=== PATIENT | male | born 1955 | race Caucasian/White ===

== ENCOUNTER 2017-12-07 01:52 | Inpatient (IN) | payer MEDICARE ==
[2017-12-07] VITALS (27 sets, daily range): BP systolic 69–109; BP diastolic 48–72
[~2017-12-07] VITALS: Ht 172.7 cm; Wt 74.1 kg
[2017-12-07 02:37] LABS: Eosinophils # (auto) 0 uL; Lymphocytes # (auto) 0.3 uL; Monocytes # (auto) 0.2 uL
[2017-12-07 02:39] LABS: Basophils # (auto) 0 uL; Basophils % (auto) 0.2 % (0.0-2.0); Lymphocytes % (auto) 1.8 % (10.0-50.0); Mean Corpuscular Hemoglobin 22.8 pg (28.0-32.0); Mean Corpuscular Hgb Conc. 30.9 g/dL (32.0-36.0); Mean Corpuscular Volume 73.8 fL (80.0-100.0); Monocytes % (auto) 1.3 % (0.0-12.0); Neutrophils # (auto) 16.5 uL; Neutrophils % (auto) 96.7 % (37.0-80.0); Platelet Count (auto) 385 10^3/uL (140-450); Red Blood Cells 2.98 10^6/uL (4.5-5.90); Red Cell Distribution Width 18.8 % (11.8-14.3)
[2017-12-07 02:43] LABS: Hemoglobin 6.8 g/dL (13.5-17.5)
[2017-12-07 02:51] LABS: INR 1.46 (0.9-1.15); Partial Thromboplastin Time 32.9 sec (23.78-33.04); Prothrombin Time 15.3 sec (9.27-12.13)
[2017-12-07 02:54] LABS: Alanine Aminotransferase 8 U/L (16-61); Albumin 1.3 g/dL (3.4-5.0); Amylase 5 U/L (25-115); Anion Gap 11 (5-15); Aspartate Aminotransferase 9 U/L (15-37); BUN/Creatinine Ratio 37.3; Blood Urea Nitrogen 38 mg/dL (7-18); Calcium 7.7 mg/dL (8.5-10.1); Carbon Dioxide 23 mmol/L (21-32); Chloride 101 mmol/L (98-107); GFR African American 95 mL/min; GFR Non-African American 78 mL/min; Glucose 165 mg/dL (74-106); Lipase 50 U/L (73-393); Potassium 4.6 mmol/L (3.5-5.1); Sodium 135 mmol/L (136-145)
[2017-12-07 02:59] LABS: Alkaline Phosphatase 105 U/L (45-117); Bilirubin, Total 0.5 mg/dL (0.2-1.0); Total Protein 5.8 g/dL (6.4-8.2)
[2017-12-07] MEDS ORDERED: MORPHINE SULFATE 8mg/ml INJ SDV IV PRN ×2 (05:15)
[2017-12-07] MEDS ORDERED: NITROGLYCERIN 0.4 MG SL TAB SL PRN (05:15)
[2017-12-07] MEDS ORDERED: SODIUM CHLORIDE 0.9% 500 ML IV ONE (05:15)
[2017-12-07] MEDS ORDERED: CALCIUM GLUC 4.65meq/50ml D5AE 50 ML IV ONE (05:15)
[2017-12-07] MEDS ORDERED: DEXTROSE (50%) 50ML SYRG IV PRN (05:15)
[2017-12-07] MEDS: ACCU-CHEK COMFORT CURVE STRIP VI SCH ×3 (06:24→18:00)
[2017-12-07] MEDS: metroNIDAZOLE 500MG/100ML 100 ML IV SCH ×3 (06:25→21:33)
[2017-12-07] MEDS: InsuLIN REG 1unit/0.01ml Soln (100units/ml) SC SCH ×3 (06:29→18:00)
[2017-12-07] MEDS: PANTOPRAZOLE 40 MG/10 ML VIAL IV SCH ×3 (07:04→21:32)
[2017-12-07] MEDS: SODIUM CHLORIDE 0.9% 1,000 ML IV SCH ×2 (07:32→15:17)
[2017-12-07] MEDS: PIPERACILLIN-TAZOB 3.375GM 100 ML IV SCH ×2 (07:43→12:35)
[2017-12-07] MEDS: ONDANSETRON HCL 4 MG/2 ML VIAL IV PRN (07:44)
[2017-12-07 08:32] LABS: Lactic Acid w/Reflex 2.1 mmol/L (0.4-2.0)
[2017-12-07 14:51] LABS: Hemoglobin 10.3 g/dL (13.5-17.5); Mean Corpuscular Hemoglobin 25.1 pg (28.0-32.0); Mean Corpuscular Hgb Conc. 32.3 g/dL (32.0-36.0); Mean Corpuscular Volume 77.7 fL (80.0-100.0); Platelet Count (auto) 289 10^3/uL (140-450); Red Blood Cells 4.12 10^6/uL (4.5-5.90); Red Cell Distribution Width 19.4 % (11.8-14.3); White Blood Cell 15.6 10^3/uL (4.4-10.8)
[2017-12-07 14:54] LABS: Basophils % (manual) 0 (0.0-2.0); Blast Cells 0; Eosinophils % (manual) 0 (0-7); Myelocytes % 0; Promyelocytes % 0; Reactive Lymphocytes 0
[2017-12-07 16:04] LABS: Band Neutrophils % (manual) 3; Lymphocytes % (manual) 2 (10.0-50.0); Metamyelocytes % 6; Monocytes % (manual) 2 (0-12)
[2017-12-07] MEDS ORDERED: POVIDONE IODINE 10 % TOPICAL OINT 30GM TOP ONE (17:10)
[2017-12-07] MEDS ORDERED: ceFAZolin 1GM/100ML 100 ML IV ONE (17:12)
[2017-12-07] MEDS ORDERED: MIDAZOLAM HCL 1MG/1ML-2 ML VIAL ONE ×2 (17:23→18:38)
[2017-12-07] MEDS ORDERED: ROCURONIUM 10MG/ML 10ML VIAL IV ONE (17:23)
[2017-12-07] MEDS ORDERED: fentaNYL CITRATE 100 MCG/2 ML VL ONE (17:23)
[2017-12-07] MEDS ORDERED: PROPOFOL 10 MG/ML 20 ML IV ONE (17:24)
[2017-12-07] MEDS ORDERED: metroNIDAZOLE 500MG/100ML 100 ML IV ONE (17:47)
[2017-12-07] MEDS ORDERED: NOREPINEPHRINE 8 MG/250ML KIT 250 ML IV ONE (18:23)
[2017-12-07] MEDS ORDERED: SODIUM BICARBONATE 8.4 % INJ 50ML VIAL IV ONE (18:40)
[2017-12-07] MEDS ORDERED: HYDROmorphone HCL 2 MG/ML VL IV ONE (19:00)
[2017-12-07] MEDS ORDERED: MIDAZOLAM HCL 1MG/1ML-2 ML VIAL IV PRN (19:00)
[2017-12-07] MEDS: MIDAZOLAM DRIP 50 mg/50mL 50 ML IV SCH (19:15)
[2017-12-07] MEDS ORDERED: MIDAZOLAM DRIP 50 mg/50mL 50 ML IV ONE (19:24)
[2017-12-07] MEDS: NOREPINEPHRINE 8 MG/250ML KIT 250 ML IV SCH (20:20)
[2017-12-07] MEDS ORDERED: PHENYLEPHRINE IV 250 ML IV ONE (23:13)
[2017-12-07] MEDS ORDERED: ALBUMIN 25% 0 ML IV ONE (23:14)
[2017-12-07] MEDS ORDERED: ALBUMIN 5% 250 ML IV ONE (23:15)
[2017-12-07] MEDS: PHENYLEPHRINE INJ 20 MG in D5W 5% 250 ML IV SCH (23:15)
[2017-12-07 23:21] LABS: Hemoglobin 8.7 g/dL (13.5-17.5)
[2017-12-07 23:23] LABS: Hematocrit 27.3 % (41.0-53.0)
[2017-12-08] VITALS (106 sets, daily range): BP systolic 70–109; BP diastolic 45–68
[2017-12-08] MEDS ORDERED: ceFAZolin 1GM/100ML 100 ML IV SCH
[2017-12-08] MEDS: PIPERACILLIN-TAZOB 3.375GM 100 ML IV SCH ×4 (01:00→18:56)
[2017-12-08] MEDS: SODIUM CHLORIDE 0.9% 1,000 ML IV SCH (01:15)
[2017-12-08] MEDS ORDERED: SODIUM CHLORIDE 0.9% 1,000 ML IV ONE (02:00)
[2017-12-08] MEDS ORDERED: PHENYLEPHRINE IV 250 ML IV ONE ×2 (03:11→17:12)
[2017-12-08] MEDS: MIDAZOLAM DRIP 50 mg/50mL 50 ML IV SCH ×2 (03:34→15:51)
[2017-12-08] MEDS: InsuLIN REG 1unit/0.01ml Soln (100units/ml) SC SCH ×4 (06:00→18:00)
[2017-12-08] MEDS: ACCU-CHEK COMFORT CURVE STRIP VI SCH ×4 (06:00→18:00)
[2017-12-08] MEDS: metroNIDAZOLE 500MG/100ML 100 ML IV SCH ×3 (06:00→22:16)
[2017-12-08 06:26] LABS: Basophils # (auto) 0 uL; Basophils % (auto) 0.1 % (0.0-2.0); Eosinophils # (auto) 0 uL; Eosinophils % (auto) 0.1 % (0.0-7.0)
[2017-12-08 06:33] LABS: Hematocrit 25.3 % (41.0-53.0); Lymphocytes # (auto) 0.2 uL; Lymphocytes % (auto) 1.1 % (10.0-50.0); Mean Corpuscular Hemoglobin 25.8 pg (28.0-32.0); Mean Corpuscular Hgb Conc. 31.4 g/dL (32.0-36.0); Mean Corpuscular Volume 81.9 fL (80.0-100.0); Monocytes # (auto) 0.3 uL; Monocytes % (auto) 1.2 % (0.0-12.0); Neutrophils # (auto) 21.5 uL; Neutrophils % (auto) 97.5 % (37.0-80.0); Platelet Count (auto) 344 10^3/uL (140-450); Red Blood Cells 3.09 10^6/uL (4.5-5.90); Red Cell Distribution Width 19.1 % (11.8-14.3); White Blood Cell 22.1 10^3/uL (4.4-10.8)
[2017-12-08 06:44] LABS: Albumin 1.3 g/dL (3.4-5.0); BUN/Creatinine Ratio 40.8; Bilirubin, Total 3.2 mg/dL (0.2-1.0); Calcium 6.2 mg/dL (8.5-10.1); Potassium 4.6 mmol/L (3.5-5.1); Total Protein 4.4 g/dL (6.4-8.2)
[2017-12-08] MEDS: PHENYLEPHRINE INJ 20 MG in D5W 5% 250 ML IV SCH ×3 (07:36→17:31)
[2017-12-08] MEDS: D5W/SOD CHLO 0.9% 1,000 ML IV SCH ×2 (09:46→19:00)
[2017-12-08] MEDS: PANTOPRAZOLE 40 MG/10 ML VIAL IV SCH ×2 (09:46→22:16)
[2017-12-08] MEDS ORDERED: PHENYLEPHRINE INJ 40 MG in SODIUM CHL 0.9% 250 ML IV SCH ×2 (17:43→18:00)
[2017-12-08] MEDS ORDERED: PHENYLEPHRINE INJ 20 MG in D5W 5% 250 ML IV SCH (17:45)
[2017-12-08] MEDS: PHENYLEPHRINE INJ 40 MG in D5W 5% 250 ML IV SCH ×2 (19:10→23:00)
[2017-12-08] MEDS: NOREPINEPHRINE 8 MG/250ML KIT 250 ML IV SCH (19:30)
[2017-12-09] VITALS (107 sets, daily range): BP systolic 65–130; BP diastolic 43–71
[2017-12-09] MEDS: PIPERACILLIN-TAZOB 3.375GM 100 ML IV SCH ×5 (00:06→23:36)
[2017-12-09] MEDS: ACCU-CHEK COMFORT CURVE STRIP VI SCH ×13 (00:09→23:36)
[2017-12-09] MEDS: D5W/SOD CHLO 0.9% 1,000 ML IV SCH ×2 (00:44→21:03)
[2017-12-09 05:17] LABS: Eosinophils # (auto) 0 uL; Hemoglobin 7.2 g/dL (13.5-17.5); Lymphocytes # (auto) 0.5 uL; Mean Corpuscular Hemoglobin 25.3 pg (28.0-32.0); Mean Corpuscular Hgb Conc. 30.4 g/dL (32.0-36.0); Monocytes # (auto) 0.3 uL
[2017-12-09 05:19] LABS: Basophils # (auto) 0.1 uL; Basophils % (auto) 0.3 % (0.0-2.0); Hematocrit 23.8 % (41.0-53.0); Lymphocytes % (auto) 2.8 % (10.0-50.0); Mean Corpuscular Volume 83.5 fL (80.0-100.0); Monocytes % (auto) 1.5 % (0.0-12.0); Neutrophils # (auto) 18.5 uL; Neutrophils % (auto) 95.4 % (37.0-80.0); Platelet Count (auto) 147 10^3/uL (140-450); Red Blood Cells 2.85 10^6/uL (4.5-5.90); Red Cell Distribution Width 19.4 % (11.8-14.3); White Blood Cell 19.4 10^3/uL (4.4-10.8)
[2017-12-09 05:42] LABS: Calcium 6.5 mg/dL (8.5-10.1); Potassium 3.8 mmol/L (3.5-5.1)
[2017-12-09 05:44] LABS: BUN/Creatinine Ratio 38.5
[2017-12-09] MEDS ORDERED: fentaNYL Drip 2500mCg/250mlNS 0 ML IV ONE (06:15)
[2017-12-09] MEDS: InsuLIN REG 1unit/0.01ml Soln (100units/ml) SC SCH ×3 (06:28→22:00)
[2017-12-09] MEDS: metroNIDAZOLE 500MG/100ML 100 ML IV SCH ×3 (06:28→21:41)
[2017-12-09] MEDS: MIDAZOLAM DRIP 50 mg/50mL 50 ML IV SCH (08:00)
[2017-12-09] MEDS ORDERED: InsuLIN R (HUMAN) 100 UNITS in SODIUM CHL 0.9% 99 ML IV SCH (08:31)
[2017-12-09] MEDS ORDERED: DEXTROSE (50%) 50ML SYRG IV PRN ×2 (08:45→22:00)
[2017-12-09 09:43] LABS: Lactic Acid w/Reflex 2.9 mmol/L (0.4-2.0)
[2017-12-09] MEDS: PANTOPRAZOLE 40 MG/10 ML VIAL IV SCH ×2 (09:55→21:41)
[2017-12-09] MEDS: PHENYLEPHRINE INJ 40 MG in SODIUM CHL 0.9% 250 ML IV SCH ×4 (11:42→22:52)
[2017-12-09] MEDS: NOREPINEPHRINE 8 MG/250ML KIT 250 ML IV SCH ×2 (16:30→22:52)
[2017-12-10] VITALS (102 sets, daily range): BP systolic 79–140; BP diastolic 42–79
[2017-12-10] MEDS: D5W/SOD CHLO 0.9% 1,000 ML IV SCH (01:00)
[2017-12-10] MEDS: PHENYLEPHRINE INJ 40 MG in SODIUM CHL 0.9% 250 ML IV SCH ×2 (03:42→13:50)
[2017-12-10] MEDS: InsuLIN REG 1unit/0.01ml Soln (100units/ml) SC SCH ×7 (03:58→23:33)
[2017-12-10] MEDS: ACCU-CHEK COMFORT CURVE STRIP VI SCH ×5 (03:58→23:33)
[2017-12-10 04:07] LABS: Hematocrit 30.4 % (41.0-53.0); Mean Corpuscular Hemoglobin 27.1 pg (28.0-32.0); Mean Corpuscular Volume 82.2 fL (80.0-100.0); Platelet Count (auto) 91 10^3/uL (140-450); Red Cell Distribution Width 17.8 % (11.8-14.3); White Blood Cell 24.5 10^3/uL (4.4-10.8)
[2017-12-10 04:33] LABS: Basophils % (manual) 0 (0.0-2.0); Blast Cells 0; Eosinophils % (manual) 0 (0-7); Promyelocytes % 0; Reactive Lymphocytes 0
[2017-12-10] MEDS: MIDAZOLAM DRIP 50 mg/50mL 50 ML IV SCH ×2 (04:42→07:45)
[2017-12-10 05:04] LABS: Calcium 6.5 mg/dL (8.5-10.1); Magnesium 1.9 mg/dL (1.6-2.6); Potassium 3.7 mmol/L (3.5-5.1)
[2017-12-10] MEDS: metroNIDAZOLE 500MG/100ML 100 ML IV SCH ×3 (05:31→21:56)
[2017-12-10] MEDS: PIPERACILLIN-TAZOB 3.375GM 100 ML IV SCH ×4 (05:31→23:42)
[2017-12-10] MEDS: NOREPINEPHRINE 8 MG/250ML KIT 250 ML IV SCH ×3 (06:09→21:37)
[2017-12-10 06:57] LABS: Band Neutrophils % (manual) 11; Lymphocytes % (manual) 2 (10.0-50.0); Metamyelocytes % 1; Monocytes % (manual) 4 (0-12); Myelocytes % 1
[2017-12-10 07:50] LABS: Lactic Acid w/Reflex 2.1 mmol/L (0.4-2.0)
[2017-12-10] MEDS ORDERED: TPN PER PHARMACY 0 ML IV SCH (08:45)
[2017-12-10 09:23] LABS: Phosphorus 3.1 mg/dL (2.5-4.90); Pre Albumin < 3.0 mg/dL (20.0-40.0); Triglycerides 85 mg/dL (< 150)
[2017-12-10] MEDS: PANTOPRAZOLE 40 MG/10 ML VIAL IV SCH ×2 (09:27→21:55)
[2017-12-10] MEDS ORDERED: DEXTROSE (50%) 50ML SYRG IV SCH (09:45)
[2017-12-10] MEDS: SODIUM BICARBONATE 50ML VIAL 100 ML in D5W 5% 1,000 ML IV SCH ×2 (11:43→23:31)
[2017-12-10] MEDS ORDERED: MORPHINE SULFATE 10 MG/ML INJ 1ML SDV IV PRN (14:30)
[2017-12-10] MEDS: MORPHINE SULFATE 10 MG/ML INJ 1ML SDV IV PRN (15:31)
[2017-12-10] MEDS ORDERED: TPN PER PHARMACY IV NR ×10 (20:00)
[2017-12-11] VITALS (103 sets, daily range): BP systolic 95–129; BP diastolic 51–74
[2017-12-11] MEDS: NOREPINEPHRINE 8 MG/250ML KIT 250 ML IV SCH (05:22)
[2017-12-11] MEDS: metroNIDAZOLE 500MG/100ML 100 ML IV SCH ×3 (05:23→21:55)
[2017-12-11] MEDS: PIPERACILLIN-TAZOB 3.375GM 100 ML IV SCH ×4 (05:47→23:53)
[2017-12-11] MEDS: ACCU-CHEK COMFORT CURVE STRIP VI SCH ×4 (05:47→23:24)
[2017-12-11] MEDS: InsuLIN REG 1unit/0.01ml Soln (100units/ml) SC SCH ×4 (05:47→23:30)
[2017-12-11 06:06] LABS: Basophils # (auto) 0 uL; Eosinophils # (auto) 0 uL; Hemoglobin 8.5 g/dL (13.5-17.5); Lymphocytes # (auto) 0.5 uL; Monocytes # (auto) 0.4 uL
[2017-12-11 06:11] LABS: Basophils % (auto) 0.1 % (0.0-2.0); Eosinophils % (auto) 0.2 % (0.0-7.0); Hematocrit 25.2 % (41.0-53.0); Lymphocytes % (auto) 3.9 % (10.0-50.0); Mean Corpuscular Hemoglobin 27.5 pg (28.0-32.0); Mean Corpuscular Hgb Conc. 33.8 g/dL (32.0-36.0); Mean Corpuscular Volume 81.3 fL (80.0-100.0); Monocytes % (auto) 2.9 % (0.0-12.0); Neutrophils # (auto) 12.2 uL; Neutrophils % (auto) 92.9 % (37.0-80.0); Nucleated Red Blood Cells % 0.1 %; Platelet Count (auto) 55 10^3/uL (140-450); Red Cell Distribution Width 18.8 % (11.8-14.3); White Blood Cell 13.1 10^3/uL (4.4-10.8)
[2017-12-11 06:31] LABS: Albumin 0.7 g/dL (3.4-5.0); BUN/Creatinine Ratio 31.6; Calcium 6.2 mg/dL (8.5-10.1); Phosphorus 1.9 mg/dL (2.5-4.90); Potassium 3.2 mmol/L (3.5-5.1); Total Protein 3.7 g/dL (6.4-8.2)
[2017-12-11] MEDS: SODIUM BICARBONATE 50ML VIAL 100 ML in D5W 5% 1,000 ML IV SCH ×3 (07:15→18:15)
[2017-12-11] MEDS: MIDAZOLAM DRIP 50 mg/50mL 50 ML IV SCH (07:45)
[2017-12-11] MEDS ORDERED: POTASSIUM PHOSPHATE 44 MEQ in D5W 5% 250 ML IV ONE (08:00)
[2017-12-11] MEDS: PANTOPRAZOLE 40 MG/10 ML VIAL IV SCH ×2 (08:36→21:55)
[2017-12-11] MEDS ORDERED: TPN PER PHARMACY IV NR ×11 (20:00)
[2017-12-11] MEDS: POTASSIUM CHL 20MEQ/100ML 100 ML IV SCH ×2 (20:24→22:12)
[2017-12-12] VITALS (108 sets, daily range): BP systolic 90–131; BP diastolic 58–78
[2017-12-12] MEDS: SODIUM BICARBONATE 50ML VIAL 100 ML in D5W 5% 1,000 ML IV SCH (04:56)
[2017-12-12 05:09] LABS: Hematocrit 26.4 % (41.0-53.0); Hemoglobin 9.2 g/dL (13.5-17.5); Mean Corpuscular Hgb Conc. 34.6 g/dL (32.0-36.0); Mean Corpuscular Volume 80.9 fL (80.0-100.0); Platelet Count (auto) 53 10^3/uL (140-450); Red Blood Cells 3.27 10^6/uL (4.5-5.90); Red Cell Distribution Width 19.2 % (11.8-14.3); White Blood Cell 10.4 10^3/uL (4.4-10.8)
[2017-12-12 05:14] LABS: Basophils % (manual) 0 (0.0-2.0); Blast Cells 0; Eosinophils % (manual) 0 (0-7); Metamyelocytes % 0; Monocytes % (manual) 0 (0-12); Myelocytes % 0; Promyelocytes % 0; Reactive Lymphocytes 0
[2017-12-12 05:37] LABS: Potassium 3.5 mmol/L (3.5-5.1)
[2017-12-12 05:38] LABS: Albumin 0.7 g/dL (3.4-5.0); BUN/Creatinine Ratio 31.9; Bilirubin, Total 4.5 mg/dL (0.2-1.0); Calcium 6.4 mg/dL (8.5-10.1); Magnesium 1.9 mg/dL (1.6-2.6); Phosphorus 1.7 mg/dL (2.5-4.90); Total Protein 4.1 g/dL (6.4-8.2)
[2017-12-12] MEDS: metroNIDAZOLE 500MG/100ML 100 ML IV SCH ×3 (05:44→21:53)
[2017-12-12] MEDS: ACCU-CHEK COMFORT CURVE STRIP VI SCH ×4 (06:04→23:39)
[2017-12-12] MEDS: InsuLIN REG 1unit/0.01ml Soln (100units/ml) SC SCH ×4 (06:05→23:39)
[2017-12-12] MEDS: PHENYLEPHRINE INJ 40 MG in SODIUM CHL 0.9% 250 ML IV SCH ×2 (06:10→22:50)
[2017-12-12] MEDS: PIPERACILLIN-TAZOB 3.375GM 100 ML IV SCH ×4 (06:31→23:39)
[2017-12-12] MEDS ORDERED: POTASSIUM PHOSPHATE 44 MEQ in D5W 5% 250 ML IV ONE (07:30)
[2017-12-12 08:52] LABS: Band Neutrophils % (manual) 1; Lymphocytes % (manual) 6 (10.0-50.0)
[2017-12-12] MEDS ORDERED: TPN PER PHARMACY IV NR ×21 (09:15→20:00)
[2017-12-12] MEDS: MIDAZOLAM DRIP 50 mg/50mL 50 ML IV SCH (09:30)
[2017-12-12] MEDS: PANTOPRAZOLE 40 MG/10 ML VIAL IV SCH ×2 (10:44→21:53)
[2017-12-12] MEDS: ALBUMIN 25% 100 ML IV SCH ×3 (12:20→23:42)
[2017-12-12] MEDS ORDERED: fentaNYL Drip 2500mCg/250mlNS 250 ML IV SCH (20:03)
[2017-12-12] MEDS: NOREPINEPHRINE 8 MG/250ML KIT 250 ML IV SCH (20:20)
[2017-12-13] VITALS (115 sets, daily range): BP systolic 99–133; BP diastolic 53–74
[2017-12-13] MEDS: metroNIDAZOLE 500MG/100ML 100 ML IV SCH ×3 (05:35→22:29)
[2017-12-13] MEDS: ACCU-CHEK COMFORT CURVE STRIP VI SCH ×3 (05:35→17:55)
[2017-12-13] MEDS: PIPERACILLIN-TAZOB 3.375GM 100 ML IV SCH ×3 (05:35→16:52)
[2017-12-13] MEDS: InsuLIN REG 1unit/0.01ml Soln (100units/ml) SC SCH ×3 (05:35→17:55)
[2017-12-13] MEDS: ALBUMIN 25% 100 ML IV SCH ×3 (05:36→17:55)
[2017-12-13 06:04] LABS: Hematocrit 20.8 % (41.0-53.0); Hemoglobin 7.1 g/dL (13.5-17.5); Mean Corpuscular Hemoglobin 28.2 pg (28.0-32.0); Mean Corpuscular Hgb Conc. 34.3 g/dL (32.0-36.0); Platelet Count (auto) 60 10^3/uL (140-450); Red Blood Cells 2.54 10^6/uL (4.5-5.90); White Blood Cell 8.5 10^3/uL (4.4-10.8)
[2017-12-13 06:20] LABS: Red Cell Distribution Width 20.2 % (11.8-14.3)
[2017-12-13 06:21] LABS: Albumin 1.7 g/dL (3.4-5.0); BUN/Creatinine Ratio 35.7; Bilirubin, Total 6.1 mg/dL (0.2-1.0); Calcium 6.9 mg/dL (8.5-10.1); Magnesium 1.8 mg/dL (1.6-2.6); Phosphorus 2.2 mg/dL (2.5-4.90); Potassium 3.3 mmol/L (3.5-5.1); Total Protein 4.4 g/dL (6.4-8.2)
[2017-12-13 06:24] LABS: Basophils % (manual) 0 (0.0-2.0); Blast Cells 0; Metamyelocytes % 0; Myelocytes % 0; Promyelocytes % 0; Reactive Lymphocytes 0
[2017-12-13] MEDS: MIDAZOLAM DRIP 50 mg/50mL 50 ML IV SCH (07:45)
[2017-12-13 08:13] LABS: Eosinophils % (manual) 1 (0-7); Monocytes % (manual) 2 (0-12)
[2017-12-13 08:14] LABS: Band Neutrophils % (manual) 35; Lymphocytes % (manual) 3 (10.0-50.0)
[2017-12-13] MEDS ORDERED: POTASSIUM PHOSPHATE 44 MEQ in D5W 5% 250 ML IV ONE (08:45)
[2017-12-13 09:24] LABS: Basophils # (auto) 0 uL; Basophils % (auto) 0.4 % (0.0-2.0); Eosinophils # (auto) 0 uL; Eosinophils % (auto) 0.1 % (0.0-7.0); Hematocrit 20.1 % (41.0-53.0); Lymphocytes # (auto) 0.3 uL; Lymphocytes % (auto) 4.6 % (10.0-50.0); Mean Corpuscular Hemoglobin 27.3 pg (28.0-32.0); Mean Corpuscular Hgb Conc. 33.3 g/dL (32.0-36.0); Monocytes # (auto) 0.2 uL; Monocytes % (auto) 3.1 % (0.0-12.0); Neutrophils # (auto) 6.8 uL; Neutrophils % (auto) 91.8 % (37.0-80.0); Platelet Count (auto) 59 10^3/uL (140-450); Red Blood Cells 2.45 10^6/uL (4.5-5.90); White Blood Cell 7.5 10^3/uL (4.4-10.8)
[2017-12-13 09:25] LABS: Red Cell Distribution Width 20.1 % (11.8-14.3)
[2017-12-13 09:27] LABS: Hemoglobin 6.7 g/dL (13.5-17.5)
[2017-12-13] MEDS: fentaNYL Drip 2500mCg/250mlNS 250 ML IV SCH (10:03)
[2017-12-13] MEDS: PANTOPRAZOLE 40 MG/10 ML VIAL IV SCH ×2 (10:03→22:29)
[2017-12-13] MEDS: PHENYLEPHRINE INJ 40 MG in SODIUM CHL 0.9% 250 ML IV SCH (15:30)
[2017-12-13 17:04] LABS: Hemoglobin 8.8 g/dL (13.5-17.5)
[2017-12-13 17:06] LABS: Hematocrit 25.9 % (41.0-53.0)
[2017-12-13] MEDS ORDERED: TPN PER PHARMACY IV NR ×11 (20:00)
[2017-12-13] MEDS: NOREPINEPHRINE 8 MG/250ML KIT 250 ML IV SCH (20:20)
[2017-12-13] MEDS: POTASSIUM CHL 20MEQ/100ML 100 ML IV SCH ×2 (20:53→22:29)
[2017-12-14] VITALS (86 sets, daily range): BP systolic 105–142; BP diastolic 57–74
[2017-12-14] MEDS: PIPERACILLIN-TAZOB 3.375GM 100 ML IV SCH ×5 (00:31→23:03)
[2017-12-14] MEDS: ALBUMIN 25% 100 ML IV SCH ×2 (00:32→06:24)
[2017-12-14] MEDS: metroNIDAZOLE 500MG/100ML 100 ML IV SCH ×3 (06:25→21:06)
[2017-12-14 06:47] LABS: Albumin 2.2 g/dL (3.4-5.0); Bilirubin, Total 6.3 mg/dL (0.2-1.0); Magnesium 2.2 mg/dL (1.6-2.6); Phosphorus 2.4 mg/dL (2.5-4.90); Potassium 3.7 mmol/L (3.5-5.1); Total Protein 4.5 g/dL (6.4-8.2)
[2017-12-14] MEDS: MIDAZOLAM DRIP 50 mg/50mL 50 ML IV SCH (08:00)
[2017-12-14] MEDS: InsuLIN REG 1unit/0.01ml Soln (100units/ml) SC SCH ×5 (08:00→23:30)
[2017-12-14] MEDS: PHENYLEPHRINE INJ 40 MG in SODIUM CHL 0.9% 250 ML IV SCH (08:10)
[2017-12-14 08:35] LABS: Basophils # (auto) 0 uL; Basophils % (auto) 0.1 % (0.0-2.0); Eosinophils # (auto) 0 uL; Hemoglobin 8.8 g/dL (13.5-17.5); Monocytes # (auto) 0.3 uL; Neutrophils # (auto) 7.3 uL; White Blood Cell 7.8 10^3/uL (4.4-10.8)
[2017-12-14 08:37] LABS: Eosinophils % (auto) 0.4 % (0.0-7.0); Lymphocytes # (auto) 0.2 uL; Lymphocytes % (auto) 3.1 % (10.0-50.0); Mean Corpuscular Hemoglobin 28.5 pg (28.0-32.0); Mean Corpuscular Volume 83.8 fL (80.0-100.0); Monocytes % (auto) 3.5 % (0.0-12.0); Neutrophils % (auto) 92.9 % (37.0-80.0); Platelet Count (auto) 65 10^3/uL (140-450); Red Cell Distribution Width 18.8 % (11.8-14.3)
[2017-12-14] MEDS: ACCU-CHEK COMFORT CURVE STRIP VI SCH ×5 (10:00→23:30)
[2017-12-14] MEDS ORDERED: SODIUM PHOSP 20MEQ(15MMOL) IN NS 100 ML IV ONE (10:00)
[2017-12-14] MEDS ORDERED: FUROSEMIDE 40 MG/4 ML VIAL IV ONE (10:30)
[2017-12-14] MEDS: PANTOPRAZOLE 40 MG/10 ML VIAL IV SCH ×2 (10:30→21:06)
[2017-12-14] MEDS: fentaNYL Drip 2500mCg/250mlNS 250 ML IV SCH (12:04)
[2017-12-14] MEDS: ALBUMIN 25% 50 ML IV SCH ×2 (12:14→18:28)
[2017-12-14] MEDS ORDERED: TPN PER PHARMACY IV NR ×11 (20:00)
[2017-12-15] VITALS (14 sets, daily range): BP systolic 11–129; BP diastolic 56–80
[2017-12-15] MEDS: MORPHINE SULFATE 10 MG/ML INJ 1ML SDV IV PRN (00:47)
[2017-12-15] MEDS: ALBUMIN 25% 50 ML IV SCH (03:06)
[2017-12-15] MEDS: PIPERACILLIN-TAZOB 3.375GM 100 ML IV SCH ×4 (05:01→23:39)
[2017-12-15] MEDS: metroNIDAZOLE 500MG/100ML 100 ML IV SCH ×3 (05:03→21:00)
[2017-12-15] MEDS: ACCU-CHEK COMFORT CURVE STRIP VI SCH ×4 (05:03→23:40)
[2017-12-15] MEDS: InsuLIN REG 1unit/0.01ml Soln (100units/ml) SC SCH ×4 (05:35→23:40)
[2017-12-15 06:01] LABS: Basophils # (auto) 0 uL; Basophils % (auto) 0.1 % (0.0-2.0); Eosinophils # (auto) 0 uL; Eosinophils % (auto) 0.2 % (0.0-7.0); Hematocrit 25.7 % (41.0-53.0); Hemoglobin 8.8 g/dL (13.5-17.5); Lymphocytes # (auto) 0.3 uL; Mean Corpuscular Hemoglobin 28.7 pg (28.0-32.0); Mean Corpuscular Hgb Conc. 34.3 g/dL (32.0-36.0); Mean Corpuscular Volume 83.8 fL (80.0-100.0); Monocytes # (auto) 0.4 uL; Monocytes % (auto) 4.6 % (0.0-12.0); Neutrophils % (auto) 92.1 % (37.0-80.0); Platelet Count (auto) 99 10^3/uL (140-450); Red Blood Cells 3.07 10^6/uL (4.5-5.90); Red Cell Distribution Width 19.3 % (11.8-14.3); White Blood Cell 8.7 10^3/uL (4.4-10.8)
[2017-12-15 06:18] LABS: BUN/Creatinine Ratio 43.5; Calcium 7.2 mg/dL (8.5-10.1); Magnesium 2.1 mg/dL (1.6-2.6); Phosphorus 2.4 mg/dL (2.5-4.90)
[2017-12-15 06:28] LABS: Albumin 2.3 g/dL (3.4-5.0); Bilirubin, Direct 3.7 mg/dL (0-0.2); Bilirubin, Total 5.5 mg/dL (0.2-1.0); Total Protein 4.8 g/dL (6.4-8.2)
[2017-12-15] MEDS: PANTOPRAZOLE 40 MG/10 ML VIAL IV SCH ×2 (09:46→21:01)
[2017-12-15] MEDS: POTASSIUM CHL 20MEQ/100ML 100 ML IV SCH ×3 (10:19→15:45)
[2017-12-15] MEDS: FUROSEMIDE 40 MG/4 ML VIAL IV SCH (10:19)
[2017-12-15] MEDS ORDERED: SODIUM PHOSP 20MEQ(15MMOL) IN NS 100 ML IV ONE (12:00)
[2017-12-15] MEDS: Boost Glucose Control 8 Ounces PO SCH ×2 (18:00→20:58)
[2017-12-15] MEDS ORDERED: TPN PER PHARMACY IV NR ×11 (20:00)
[2017-12-15] MEDS: ONDANSETRON HCL 4 MG/2 ML VIAL IV PRN (21:13)
[2017-12-16] VITALS (7 sets, daily range): BP systolic 104–117; BP diastolic 54–68
[2017-12-16 05:22] LABS: Basophils # (auto) 0 uL; Basophils % (auto) 0.2 % (0.0-2.0); Eosinophils # (auto) 0 uL; Eosinophils % (auto) 0.3 % (0.0-7.0); Hematocrit 26.4 % (41.0-53.0); Hemoglobin 9.2 g/dL (13.5-17.5); Lymphocytes # (auto) 0.3 uL; Lymphocytes % (auto) 3.4 % (10.0-50.0); Mean Corpuscular Hemoglobin 29.2 pg (28.0-32.0); Mean Corpuscular Hgb Conc. 34.7 g/dL (32.0-36.0); Mean Corpuscular Volume 84.2 fL (80.0-100.0); Monocytes # (auto) 0.6 uL; Monocytes % (auto) 7.5 % (0.0-12.0); Neutrophils # (auto) 7.5 uL; Neutrophils % (auto) 88.6 % (37.0-80.0); Platelet Count (auto) 128 10^3/uL (140-450); Red Blood Cells 3.14 10^6/uL (4.5-5.90); Red Cell Distribution Width 19.8 % (11.8-14.3); White Blood Cell 8.5 10^3/uL (4.4-10.8)
[2017-12-16 05:43] LABS: Albumin 1.7 g/dL (3.4-5.0); BUN/Creatinine Ratio 46.3; Bilirubin, Total 4.7 mg/dL (0.2-1.0); Magnesium 1.9 mg/dL (1.6-2.6); Potassium 3.4 mmol/L (3.5-5.1); Total Protein 4.6 g/dL (6.4-8.2)
[2017-12-16] MEDS: Boost Glucose Control 8 Ounces PO SCH ×4 (05:47→22:00)
[2017-12-16] MEDS: ACCU-CHEK COMFORT CURVE STRIP VI SCH ×4 (05:47→23:39)
[2017-12-16] MEDS: metroNIDAZOLE 500MG/100ML 100 ML IV SCH ×3 (05:47→21:34)
[2017-12-16] MEDS: InsuLIN REG 1unit/0.01ml Soln (100units/ml) SC SCH ×4 (05:47→23:39)
[2017-12-16] MEDS: PIPERACILLIN-TAZOB 3.375GM 100 ML IV SCH ×4 (06:35→23:28)
[2017-12-16] MEDS ORDERED: POTASSIUM PHOSP 22MEQ(15MMOLE) in NS 100 ML IV ONE (09:00)
[2017-12-16] MEDS: FUROSEMIDE 40 MG/4 ML VIAL IV SCH (10:06)
[2017-12-16] MEDS: PANTOPRAZOLE 40 MG/10 ML VIAL IV SCH ×2 (10:06→21:35)
[2017-12-16] MEDS ORDERED: TPN PER PHARMACY IV NR ×11 (20:00)
[2017-12-17] VITALS (8 sets, daily range): BP systolic 90–114; BP diastolic 58–68
[2017-12-17] MEDS: metroNIDAZOLE 500MG/100ML 100 ML IV SCH (05:26)
[2017-12-17] MEDS: InsuLIN REG 1unit/0.01ml Soln (100units/ml) SC SCH ×3 (05:37→18:00)
[2017-12-17] MEDS: ACCU-CHEK COMFORT CURVE STRIP VI SCH ×3 (05:37→18:43)
[2017-12-17] MEDS: Boost Glucose Control 8 Ounces PO SCH ×4 (05:37→22:00)
[2017-12-17 06:42] LABS: Basophils # (auto) 0 uL; Basophils % (auto) 0.2 % (0.0-2.0); Eosinophils # (auto) 0 uL; Hematocrit 29.7 % (41.0-53.0); Hemoglobin 9.8 g/dL (13.5-17.5); Lymphocytes # (auto) 0.3 uL; Lymphocytes % (auto) 2.5 % (10.0-50.0); Mean Corpuscular Hemoglobin 28.2 pg (28.0-32.0); Mean Corpuscular Volume 85.6 fL (80.0-100.0); Monocytes # (auto) 0.9 uL; Monocytes % (auto) 7.8 % (0.0-12.0); Neutrophils # (auto) 10.5 uL; Neutrophils % (auto) 89.5 % (37.0-80.0); Platelet Count (auto) 215 10^3/uL (140-450); Red Blood Cells 3.47 10^6/uL (4.5-5.90); Red Cell Distribution Width 19.8 % (11.8-14.3); White Blood Cell 11.8 10^3/uL (4.4-10.8)
[2017-12-17] MEDS: PIPERACILLIN-TAZOB 3.375GM 100 ML IV SCH ×3 (06:59→17:45)
[2017-12-17 07:00] LABS: Albumin 1.6 g/dL (3.4-5.0); BUN/Creatinine Ratio 45.1; Calcium 7.2 mg/dL (8.5-10.1); Magnesium 1.9 mg/dL (1.6-2.6); Potassium 3.5 mmol/L (3.5-5.1); Total Protein 5.1 g/dL (6.4-8.2)
[2017-12-17 07:13] LABS: Phosphorus 2.6 mg/dL (2.5-4.90)
[2017-12-17 07:14] LABS: Bilirubin, Total 5.5 mg/dL (0.2-1.0)
[2017-12-17] MEDS: FUROSEMIDE 40 MG/4 ML VIAL IV SCH (08:34)
[2017-12-17] MEDS: PANTOPRAZOLE 40 MG/10 ML VIAL IV SCH ×2 (09:20→22:26)
[2017-12-17] MEDS ORDERED: POTASSIUM PHOSPHATE 22 MEQ in SODIUM CHL 0.9% 100 ML IV ONE (10:00)
[2017-12-17] MEDS: methylPREDNISolone SOD SUCC 40 MG/ML VL IV SCH ×2 (11:34→17:45)
[2017-12-17] MEDS: IPRATROPIUM BROM 0.5 MG/2.5ML INH SOL NEB SCH ×2 (15:10→18:00)
[2017-12-17] MEDS: ALBUTEROL SULF 2.5 MG/0.5ML(0.5%) NEB SOLN NEB SCH ×2 (15:10→18:00)
[2017-12-17] MEDS ORDERED: TPN PER PHARMACY IV NR ×10 (20:00)
[2017-12-17] MEDS: BUDESONIDE (INHALATION) 0.5 MG/2 ML NEB NEB SCH (22:08)
[2017-12-18] MEDS: methylPREDNISolone SOD SUCC 40 MG/ML VL IV SCH ×5 (00:08→23:48)
[2017-12-18] MEDS: PIPERACILLIN-TAZOB 3.375GM 100 ML IV SCH ×5 (00:08→23:48)
[2017-12-18 05:27] VITALS: BP 120/75
[2017-12-18] MEDS: Boost Glucose Control 8 Ounces PO SCH ×4 (06:00→21:28)
[2017-12-18] MEDS: ACCU-CHEK COMFORT CURVE STRIP VI SCH ×5 (06:00→23:48)
[2017-12-18] MEDS: InsuLIN REG 1unit/0.01ml Soln (100units/ml) SC SCH ×5 (06:00→23:58)
[2017-12-18] MEDS: ALBUTEROL SULF 2.5 MG/0.5ML(0.5%) NEB SOLN NEB SCH ×4 (06:51→19:22)
[2017-12-18] MEDS: BUDESONIDE (INHALATION) 0.5 MG/2 ML NEB NEB SCH ×2 (06:51→19:22)
[2017-12-18] MEDS: IPRATROPIUM BROM 0.5 MG/2.5ML INH SOL NEB SCH ×4 (06:51→19:21)
[2017-12-18 06:59] LABS: Basophils # (auto) 0 uL; Basophils % (auto) 0.1 % (0.0-2.0); Eosinophils # (auto) 0 uL; Hematocrit 26.5 % (41.0-53.0); Lymphocytes # (auto) 0.2 uL; Lymphocytes % (auto) 2.8 % (10.0-50.0); Mean Corpuscular Hemoglobin 29.2 pg (28.0-32.0); Mean Corpuscular Volume 85.9 fL (80.0-100.0); Monocytes # (auto) 0.3 uL; Monocytes % (auto) 4.3 % (0.0-12.0); Neutrophils # (auto) 6.6 uL; Neutrophils % (auto) 92.8 % (37.0-80.0); Platelet Count (auto) 150 10^3/uL (140-450); Red Blood Cells 3.09 10^6/uL (4.5-5.90); Red Cell Distribution Width 19.6 % (11.8-14.3); White Blood Cell 7.1 10^3/uL (4.4-10.8)
[2017-12-18 07:01] LABS: BUN/Creatinine Ratio 53.6; Calcium 7.3 mg/dL (8.5-10.1); Potassium 3.8 mmol/L (3.5-5.1)
[2017-12-18 07:05] LABS: Phosphorus 2.8 mg/dL (2.5-4.90); Pre Albumin 4.9 mg/dL (20.0-40.0)
[2017-12-18 09:28] VITALS: BP 112/70
[2017-12-18] MEDS: PANTOPRAZOLE 40 MG/10 ML VIAL IV SCH ×2 (09:39→21:28)
[2017-12-18] MEDS: FUROSEMIDE 40 MG/4 ML VIAL IV SCH (09:40)
[2017-12-18] MEDS ORDERED: METF-370 (11:15)
[2017-12-18 12:32] VITALS: BP 128/66
[2017-12-18 16:55] VITALS: BP 108/64
[2017-12-18] MEDS ORDERED: TPN PER PHARMACY IV NR ×11 (20:00)
[2017-12-18 22:00] VITALS: BP 117/66
[2017-12-19] MEDS ORDERED: FUROSEMIDE 40 MG/4 ML VIAL IV ONE (00:30)
[2017-12-19 05:00] VITALS: BP 119/63
[2017-12-19] MEDS: PIPERACILLIN-TAZOB 3.375GM 100 ML IV SCH ×3 (05:44→17:41)
[2017-12-19] MEDS: methylPREDNISolone SOD SUCC 40 MG/ML VL IV SCH ×3 (05:44→17:41)
[2017-12-19] MEDS: Boost Glucose Control 8 Ounces PO SCH ×4 (05:45→22:00)
[2017-12-19] MEDS: ACCU-CHEK COMFORT CURVE STRIP VI SCH ×3 (05:45→17:55)
[2017-12-19] MEDS: InsuLIN REG 1unit/0.01ml Soln (100units/ml) SC SCH ×3 (05:46→17:56)
[2017-12-19 07:18] LABS: Hematocrit 25.4 % (41.0-53.0); Hemoglobin 8.2 g/dL (13.5-17.5); Mean Corpuscular Hemoglobin 28.3 pg (28.0-32.0); Mean Corpuscular Hgb Conc. 32.1 g/dL (32.0-36.0); Mean Corpuscular Volume 88.1 fL (80.0-100.0); Platelet Count (auto) 149 10^3/uL (140-450); Red Blood Cells 2.88 10^6/uL (4.5-5.90); White Blood Cell 5.2 10^3/uL (4.4-10.8)
[2017-12-19 07:20] LABS: Red Cell Distribution Width 20.2 % (11.8-14.3)
[2017-12-19 07:21] LABS: Basophils % (manual) 0 (0.0-2.0); Blast Cells 0; Eosinophils % (manual) 0 (0-7); Promyelocytes % 0; Reactive Lymphocytes 0
[2017-12-19] MEDS: BUDESONIDE (INHALATION) 0.5 MG/2 ML NEB NEB SCH ×2 (07:24→18:42)
[2017-12-19] MEDS: ALBUTEROL SULF 2.5 MG/0.5ML(0.5%) NEB SOLN NEB SCH ×4 (07:24→18:41)
[2017-12-19] MEDS: IPRATROPIUM BROM 0.5 MG/2.5ML INH SOL NEB SCH ×4 (07:24→18:41)
[2017-12-19 07:26] LABS: Albumin 1.3 g/dL (3.4-5.0); BUN/Creatinine Ratio 58.2; Bilirubin, Total 3.6 mg/dL (0.2-1.0); Magnesium 2.1 mg/dL (1.6-2.6)
[2017-12-19 08:19] VITALS: BP 113/62
[2017-12-19] MEDS: FUROSEMIDE 40 MG/4 ML VIAL IV SCH (09:23)
[2017-12-19] MEDS: PANTOPRAZOLE 40 MG/10 ML VIAL IV SCH ×2 (09:23→22:02)
[2017-12-19] MEDS ORDERED: POTASSIUM CHL 20MEQ/100ML 100 ML IV ONE (10:15)
[2017-12-19 12:41] VITALS: BP 117/59
[2017-12-19 12:58] LABS: Lymphocytes % (manual) 5 (10.0-50.0); Metamyelocytes % 1; Monocytes % (manual) 2 (0-12); Myelocytes % 1
[2017-12-19 13:00] LABS: Band Neutrophils % (manual) 7
[2017-12-19] MEDS ORDERED: POTASSIUM PHOSPHATE 44 MEQ in D5W 5% 250 ML IV ONE (13:30)
[2017-12-19 17:04] VITALS: BP 108/56
[2017-12-19] MEDS ORDERED: TPN PER PHARMACY IV NR ×10 (20:00)
[2017-12-19 22:00] VITALS: BP 112/58
[2017-12-20] VITALS (7 sets, daily range): BP systolic 108–132; BP diastolic 51–67
[2017-12-20] MEDS: ACCU-CHEK COMFORT CURVE STRIP VI SCH ×5 (00:13→23:56)
[2017-12-20] MEDS: methylPREDNISolone SOD SUCC 40 MG/ML VL IV SCH ×5 (00:13→23:26)
[2017-12-20] MEDS: PIPERACILLIN-TAZOB 3.375GM 100 ML IV SCH ×5 (00:13→23:26)
[2017-12-20] MEDS: InsuLIN REG 1unit/0.01ml Soln (100units/ml) SC SCH ×5 (00:16→23:56)
[2017-12-20] MEDS: Boost Glucose Control 8 Ounces PO SCH ×4 (06:00→22:00)
[2017-12-20] MEDS: ALBUTEROL SULF 2.5 MG/0.5ML(0.5%) NEB SOLN NEB SCH ×5 (06:41→22:17)
[2017-12-20] MEDS: IPRATROPIUM BROM 0.5 MG/2.5ML INH SOL NEB SCH ×5 (06:41→22:17)
[2017-12-20 06:52] LABS: Albumin 1.3 g/dL (3.4-5.0); Bilirubin, Total 3.6 mg/dL (0.2-1.0); Calcium 7.1 mg/dL (8.5-10.1); Magnesium 2.3 mg/dL (1.6-2.6); Phosphorus 2.6 mg/dL (2.5-4.90); Potassium 3.2 mmol/L (3.5-5.1); Total Protein 4.9 g/dL (6.4-8.2)
[2017-12-20] MEDS: PANTOPRAZOLE 40 MG/10 ML VIAL IV SCH ×2 (09:29→21:08)
[2017-12-20] MEDS: FUROSEMIDE 40 MG/4 ML VIAL IV SCH (09:33)
[2017-12-20] MEDS ORDERED: POTASSIUM CHL 10% (20 MEQ/15ML) 15ml ORAL SOLN PO ONE (09:45)
[2017-12-20] MEDS: BUDESONIDE (INHALATION) 0.5 MG/2 ML NEB NEB SCH ×2 (10:22→22:17)
[2017-12-20] MEDS: POTASSIUM CHL 20MEQ/100ML 100 ML IV SCH ×2 (11:27→13:35)
[2017-12-20] MEDS ORDERED: TPN PER PHARMACY IV NR ×10 (20:00)
[2017-12-21 05:00] VITALS: BP 134/79
[2017-12-21] MEDS: PIPERACILLIN-TAZOB 3.375GM 100 ML IV SCH ×4 (05:06→23:15)
[2017-12-21] MEDS: methylPREDNISolone SOD SUCC 40 MG/ML VL IV SCH ×2 (05:06→18:06)
[2017-12-21] MEDS: InsuLIN REG 1unit/0.01ml Soln (100units/ml) SC SCH ×4 (05:27→23:34)
[2017-12-21] MEDS: ACCU-CHEK COMFORT CURVE STRIP VI SCH ×4 (05:27→23:34)
[2017-12-21] MEDS: Boost Glucose Control 8 Ounces PO SCH ×4 (06:00→22:00)
[2017-12-21] MEDS: ALBUTEROL SULF 2.5 MG/0.5ML(0.5%) NEB SOLN NEB SCH ×4 (06:17→18:44)
[2017-12-21] MEDS: IPRATROPIUM BROM 0.5 MG/2.5ML INH SOL NEB SCH ×4 (06:17→18:44)
[2017-12-21] MEDS: BUDESONIDE (INHALATION) 0.5 MG/2 ML NEB NEB SCH ×2 (06:18→18:44)
[2017-12-21 07:37] LABS: Basophils # (auto) 0 uL; Basophils % (auto) 0.2 % (0.0-2.0); Eosinophils # (auto) 0 uL; Hematocrit 25.5 % (41.0-53.0); Hemoglobin 8.5 g/dL (13.5-17.5); Lymphocytes # (auto) 0.3 uL; Mean Corpuscular Hemoglobin 28.1 pg (28.0-32.0); Mean Corpuscular Hgb Conc. 33.1 g/dL (32.0-36.0); Mean Corpuscular Volume 84.7 fL (80.0-100.0); Monocytes # (auto) 0.3 uL; Neutrophils # (auto) 7.6 uL; Neutrophils % (auto) 91.8 % (37.0-80.0); Platelet Count (auto) 144 10^3/uL (140-450); Red Blood Cells 3.01 10^6/uL (4.5-5.90); Red Cell Distribution Width 19.9 % (11.8-14.3); White Blood Cell 8.2 10^3/uL (4.4-10.8)
[2017-12-21 07:41] LABS: BUN/Creatinine Ratio 93.5; Calcium 7.4 mg/dL (8.5-10.1); Magnesium 2.3 mg/dL (1.6-2.6); Potassium 3.7 mmol/L (3.5-5.1)
[2017-12-21 08:00] VITALS: BP 132/63
[2017-12-21] MEDS ORDERED: SODIUM PHOSP 20MEQ(15MMOL) IN NS 100 ML IV ONE (10:00)
[2017-12-21] MEDS: PANTOPRAZOLE 40 MG/10 ML VIAL IV SCH ×2 (10:24→21:36)
[2017-12-21] MEDS: FUROSEMIDE 40 MG/4 ML VIAL IV SCH (10:24)
[2017-12-21 12:19] VITALS: BP 117/65
[2017-12-21 16:39] VITALS: BP 116/64
[2017-12-21 20:00] VITALS: BP 124/65
[2017-12-21] MEDS ORDERED: FAT EMULSION IV NR ×10 (20:00)
[2017-12-21] MEDS ORDERED: [UNRECOGNIZED DRUG - OTHER] IV NR ×10 (20:00)
[2017-12-21] MEDS ORDERED: SODIUM CHLORIDE IV NR ×10 (20:00)
[2017-12-21] MEDS ORDERED: POTASSIUM CHLORIDE IV NR ×10 (20:00)
[2017-12-21 22:00] VITALS: BP 124/65
[2017-12-22 05:00] VITALS: BP 126/63
[2017-12-22] MEDS: methylPREDNISolone SOD SUCC 40 MG/ML VL IV SCH ×2 (05:25→18:25)
[2017-12-22] MEDS: PIPERACILLIN-TAZOB 3.375GM 100 ML IV SCH ×3 (05:25→18:25)
[2017-12-22] MEDS: InsuLIN REG 1unit/0.01ml Soln (100units/ml) SC SCH ×3 (06:00→18:26)
[2017-12-22] MEDS: Boost Glucose Control 8 Ounces PO SCH ×4 (06:00→22:17)
[2017-12-22] MEDS: ACCU-CHEK COMFORT CURVE STRIP VI SCH ×3 (06:25→18:26)
[2017-12-22] MEDS: BUDESONIDE (INHALATION) 0.5 MG/2 ML NEB NEB SCH ×2 (06:44→22:27)
[2017-12-22] MEDS: IPRATROPIUM BROM 0.5 MG/2.5ML INH SOL NEB SCH ×5 (06:44→19:48)
[2017-12-22] MEDS: ALBUTEROL SULF 2.5 MG/0.5ML(0.5%) NEB SOLN NEB SCH ×5 (06:44→19:48)
[2017-12-22 07:12] LABS: Basophils # (auto) 0 uL; Basophils % (auto) 0.1 % (0.0-2.0); Eosinophils # (auto) 0 uL; Eosinophils % (auto) 0.1 % (0.0-7.0); Hematocrit 25.1 % (41.0-53.0); Hemoglobin 8.5 g/dL (13.5-17.5); Lymphocytes # (auto) 0.4 uL; Lymphocytes % (auto) 4.1 % (10.0-50.0); Mean Corpuscular Hemoglobin 28.8 pg (28.0-32.0); Mean Corpuscular Volume 84.6 fL (80.0-100.0); Monocytes # (auto) 0.4 uL; Monocytes % (auto) 4.5 % (0.0-12.0); Neutrophils # (auto) 8.1 uL; Neutrophils % (auto) 91.2 % (37.0-80.0); Nucleated Red Blood Cells % 0.1 %; Platelet Count (auto) 145 10^3/uL (140-450); Red Blood Cells 2.97 10^6/uL (4.5-5.90); Red Cell Distribution Width 19.9 % (11.8-14.3); White Blood Cell 8.9 10^3/uL (4.4-10.8)
[2017-12-22 07:36] LABS: Albumin 1.4 g/dL (3.4-5.0); BUN/Creatinine Ratio 85.3; Bilirubin, Total 3.7 mg/dL (0.2-1.0); Calcium 7.2 mg/dL (8.5-10.1); Magnesium 2.2 mg/dL (1.6-2.6); Phosphorus 2.8 mg/dL (2.5-4.90); Potassium 4.2 mmol/L (3.5-5.1)
[2017-12-22 08:43] VITALS: BP 134/64
[2017-12-22] MEDS: FUROSEMIDE 40 MG/4 ML VIAL IV SCH (10:57)
[2017-12-22] MEDS: MEGESTROL ACET 400MG/10ML ORAL SUSP PO SCH ×2 (10:57→22:17)
[2017-12-22] MEDS: ENOXAPARIN SOD 40 MG/0.4 ML SYRINGE SC SCH (10:58)
[2017-12-22] MEDS: PANTOPRAZOLE 40 MG/10 ML VIAL IV SCH ×2 (10:58→22:17)
[2017-12-22 12:49] VITALS: BP 133/63
[2017-12-22 17:07] VITALS: BP 111/65
[2017-12-22] MEDS ORDERED: POTASSIUM CHLORIDE IV NR ×10 (20:00)
[2017-12-22] MEDS ORDERED: [UNRECOGNIZED DRUG - OTHER] IV NR ×10 (20:00)
[2017-12-22] MEDS ORDERED: FAT EMULSION IV NR ×10 (20:00)
[2017-12-22] MEDS ORDERED: SODIUM CHLORIDE IV NR ×10 (20:00)
[2017-12-22 22:00] VITALS: BP 109/59
[2017-12-23] MEDS: PIPERACILLIN-TAZOB 3.375GM 100 ML IV SCH ×3 (00:01→12:51)
[2017-12-23] MEDS: ACCU-CHEK COMFORT CURVE STRIP VI SCH ×4 (00:10→18:00)
[2017-12-23] MEDS: InsuLIN REG 1unit/0.01ml Soln (100units/ml) SC SCH ×4 (00:20→18:00)
[2017-12-23 05:04] VITALS: BP 129/75
[2017-12-23] MEDS: methylPREDNISolone SOD SUCC 40 MG/ML VL IV SCH ×2 (06:00→18:58)
[2017-12-23] MEDS: Boost Glucose Control 8 Ounces PO SCH ×4 (06:15→22:00)
[2017-12-23] MEDS: ALBUTEROL SULF 2.5 MG/0.5ML(0.5%) NEB SOLN NEB SCH ×4 (07:17→19:37)
[2017-12-23] MEDS: IPRATROPIUM BROM 0.5 MG/2.5ML INH SOL NEB SCH ×4 (07:17→19:37)
[2017-12-23 08:05] LABS: Hematocrit 27.7 % (41.0-53.0); Hemoglobin 9.3 g/dL (13.5-17.5); Mean Corpuscular Hemoglobin 28.3 pg (28.0-32.0); Mean Corpuscular Hgb Conc. 33.6 g/dL (32.0-36.0); Mean Corpuscular Volume 84.3 fL (80.0-100.0); Platelet Count (auto) 197 10^3/uL (140-450); Red Blood Cells 3.28 10^6/uL (4.5-5.90); Red Cell Distribution Width 19.8 % (11.8-14.3); White Blood Cell 13.1 10^3/uL (4.4-10.8)
[2017-12-23 08:06] VITALS: BP 126/67
[2017-12-23 08:13] LABS: Basophils % (manual) 0 (0.0-2.0); Eosinophils % (manual) 0 (0-7); Metamyelocytes % 0; Myelocytes % 0
[2017-12-23 08:14] LABS: Blast Cells 0; Promyelocytes % 0; Reactive Lymphocytes 0
[2017-12-23 08:32] LABS: Albumin 1.5 g/dL (3.4-5.0); Bilirubin, Total 3.8 mg/dL (0.2-1.0); Calcium 7.6 mg/dL (8.5-10.1); Magnesium 2.2 mg/dL (1.6-2.6); Phosphorus 2.5 mg/dL (2.5-4.90); Potassium 4.5 mmol/L (3.5-5.1); Total Protein 5.5 g/dL (6.4-8.2)
[2017-12-23] MEDS ORDERED: MORPHINE SULFATE 10 MG/5 ML ORAL SOLN PO PRN (09:15)
[2017-12-23 09:45] LABS: Band Neutrophils % (manual) 10; Lymphocytes % (manual) 2 (10.0-50.0); Monocytes % (manual) 2 (0-12)
[2017-12-23] MEDS: BUDESONIDE (INHALATION) 0.5 MG/2 ML NEB NEB SCH ×2 (10:23→19:37)
[2017-12-23] MEDS ORDERED: SODIUM PHOSPHATES 20 MEQ in SODIUM CHL 0.9% 100 ML IV ONE (10:45)
[2017-12-23] MEDS: Boost Breeze 8 Ounces PO SCH ×2 (12:00→18:00)
[2017-12-23 12:30] VITALS: BP 122/68
[2017-12-23] MEDS: MEGESTROL ACET 400MG/10ML ORAL SUSP PO SCH ×2 (12:39→22:00)
[2017-12-23] MEDS: ENOXAPARIN SOD 40 MG/0.4 ML SYRINGE SC SCH (12:40)
[2017-12-23] MEDS: PANTOPRAZOLE 40 MG/10 ML VIAL IV SCH ×2 (12:42→22:00)
[2017-12-23] MEDS: FUROSEMIDE 40 MG/4 ML VIAL IV SCH (12:42)
[2017-12-23] MEDS: SODIUM CHLORIDE 0.9% 1,000 ML IV SCH (15:45)
[2017-12-23] MEDS ORDERED: VANCOMYCIN PER PHARMACY 0 MG IV SCH (15:45)
[2017-12-23 16:13] VITALS: BP 107/63
[2017-12-23] MEDS ORDERED: IOHEXOL 300 MG/ML 100ML BOTTLE IJ ONE (16:51)
[2017-12-23] MEDS: VANCOMYCIN 1,250 MG in D5W 5% 250 ML IV SCH (18:58)
[2017-12-23] MEDS ORDERED: [UNRECOGNIZED DRUG - OTHER] IV NR ×11 (20:00)
[2017-12-23] MEDS ORDERED: SODIUM CHLORIDE IV NR ×21 (20:00)
[2017-12-23] MEDS ORDERED: SODIUM PHOSPHATES IV NR ×21 (20:00)
[2017-12-23] MEDS ORDERED: [UNRECOGNIZED DRUG - OTHER] IV NR ×10 (20:00)
[2017-12-23] MEDS ORDERED: FAT EMULSION IV NR ×21 (20:00)
[2017-12-23 20:57] VITALS: BP 107/63
[2017-12-23 22:00] VITALS: BP 155/67
[2017-12-23] MEDS: SODIUM CHL 0.9% IV SCH (22:00)
[2017-12-23] MEDS: MEROPENEM IV SCH (22:00)
[2017-12-24] MEDS: ACCU-CHEK COMFORT CURVE STRIP VI SCH ×5 (00:25→23:58)
[2017-12-24] MEDS: SODIUM CHLORIDE 0.9% 1,000 ML IV SCH ×3 (01:45→21:15)
[2017-12-24 05:00] VITALS: BP 137/76
[2017-12-24] MEDS: MEROPENEM IV SCH (06:00)
[2017-12-24] MEDS: methylPREDNISolone SOD SUCC 40 MG/ML VL IV SCH ×2 (06:00→12:46)
[2017-12-24] MEDS: SODIUM CHL 0.9% IV SCH (06:00)
[2017-12-24] MEDS: VANCOMYCIN 1,250 MG in D5W 5% 250 ML IV SCH ×2 (06:00→18:02)
[2017-12-24] MEDS: InsuLIN REG 1unit/0.01ml Soln (100units/ml) SC SCH ×5 (06:00→23:58)
[2017-12-24] MEDS: Boost Glucose Control 8 Ounces PO SCH (06:00)
[2017-12-24] MEDS: BUDESONIDE (INHALATION) 0.5 MG/2 ML NEB NEB SCH ×2 (07:17→19:34)
[2017-12-24] MEDS: ALBUTEROL SULF 2.5 MG/0.5ML(0.5%) NEB SOLN NEB SCH ×4 (07:17→19:34)
[2017-12-24] MEDS: IPRATROPIUM BROM 0.5 MG/2.5ML INH SOL NEB SCH ×4 (07:17→19:34)
[2017-12-24 07:53] LABS: Hematocrit 27.9 % (41.0-53.0); Hemoglobin 9.2 g/dL (13.5-17.5); Mean Corpuscular Hemoglobin 28.1 pg (28.0-32.0); Mean Corpuscular Volume 85.1 fL (80.0-100.0); Platelet Count (auto) 180 10^3/uL (140-450); Red Blood Cells 3.28 10^6/uL (4.5-5.90); White Blood Cell 19.8 10^3/uL (4.4-10.8)
[2017-12-24 07:59] VITALS: BP 127/68
[2017-12-24 08:00] VITALS: BP 127/68
[2017-12-24] MEDS: Boost Breeze 8 Ounces PO SCH ×3 (08:00→18:00)
[2017-12-24 08:04] LABS: Red Cell Distribution Width 20.1 % (11.8-14.3)
[2017-12-24 08:05] LABS: Basophils % (manual) 0 (0.0-2.0); Blast Cells 0; Eosinophils % (manual) 0 (0-7); Metamyelocytes % 0; Myelocytes % 0; Promyelocytes % 0; Reactive Lymphocytes 0
[2017-12-24 08:08] LABS: Albumin 1.5 g/dL (3.4-5.0); BUN/Creatinine Ratio 67.2; Bilirubin, Total 3.7 mg/dL (0.2-1.0); Calcium 7.7 mg/dL (8.5-10.1); Magnesium 2.2 mg/dL (1.6-2.6); Phosphorus 4.2 mg/dL (2.5-4.90); Total Protein 5.7 g/dL (6.4-8.2)
[2017-12-24 08:27] LABS: Band Neutrophils % (manual) 6; Lymphocytes % (manual) 3 (10.0-50.0); Monocytes % (manual) 1 (0-12)
[2017-12-24] MEDS: MEGESTROL ACET 400MG/10ML ORAL SUSP PO SCH ×2 (10:00→21:42)
[2017-12-24 11:43] VITALS: BP 123/69
[2017-12-24] MEDS: PANTOPRAZOLE 40 MG/10 ML VIAL IV SCH ×2 (12:46→21:42)
[2017-12-24] MEDS: FUROSEMIDE 40 MG/4 ML VIAL IV SCH (12:46)
[2017-12-24] MEDS: ENOXAPARIN SOD 40 MG/0.4 ML SYRINGE SC SCH (12:47)
[2017-12-24 16:10] VITALS: BP 123/72
[2017-12-24] MEDS: MEROPENEM 1gm/20ml IVPUSH 20 ML IV SCH ×2 (17:06→18:03)
[2017-12-24] MEDS ORDERED: [UNRECOGNIZED DRUG - OTHER] IV NR ×10 (20:00)
[2017-12-24] MEDS ORDERED: FAT EMULSION IV NR ×10 (20:00)
[2017-12-24] MEDS ORDERED: SODIUM PHOSPHATES IV NR ×10 (20:00)
[2017-12-24] MEDS ORDERED: SODIUM CHLORIDE IV NR ×10 (20:00)
[2017-12-24 22:00] VITALS: BP 133/76
[2017-12-25] MEDS: MEROPENEM 1gm/20ml IVPUSH 20 ML IV SCH ×3 (02:12→17:58)
[2017-12-25 05:00] VITALS: BP 125/66
[2017-12-25] MEDS: InsuLIN REG 1unit/0.01ml Soln (100units/ml) SC SCH ×3 (05:40→17:16)
[2017-12-25] MEDS: ACCU-CHEK COMFORT CURVE STRIP VI SCH ×3 (05:40→17:16)
[2017-12-25] MEDS: IPRATROPIUM BROM 0.5 MG/2.5ML INH SOL NEB SCH ×4 (06:29→19:09)
[2017-12-25] MEDS: ALBUTEROL SULF 2.5 MG/0.5ML(0.5%) NEB SOLN NEB SCH ×4 (06:29→19:09)
[2017-12-25] MEDS: BUDESONIDE (INHALATION) 0.5 MG/2 ML NEB NEB SCH ×2 (06:29→19:30)
[2017-12-25] MEDS: SODIUM CHLORIDE 0.9% 1,000 ML IV SCH ×2 (07:50→17:00)
[2017-12-25] MEDS: Boost Breeze 8 Ounces PO SCH ×3 (07:50→18:00)
[2017-12-25 08:00] VITALS: BP_SYST 127; BP_SYST 93; BP_DIAS 52; BP_DIAS 68
[2017-12-25 08:16] LABS: Hematocrit 29.6 % (41.0-53.0); Hemoglobin 9.6 g/dL (13.5-17.5); Mean Corpuscular Hemoglobin 28.6 pg (28.0-32.0); Mean Corpuscular Hgb Conc. 32.4 g/dL (32.0-36.0); Mean Corpuscular Volume 88.1 fL (80.0-100.0); Platelet Count (auto) 197 10^3/uL (140-450); Red Blood Cells 3.36 10^6/uL (4.5-5.90)
[2017-12-25 08:17] LABS: Red Cell Distribution Width 21.3 % (11.8-14.3); White Blood Cell 33.9 10^3/uL (4.4-10.8)
[2017-12-25 08:18] LABS: Basophils % (manual) 0 (0.0-2.0); Blast Cells 0; Eosinophils % (manual) 0 (0-7); Metamyelocytes % 0; Myelocytes % 0; Promyelocytes % 0; Reactive Lymphocytes 0
[2017-12-25 08:19] LABS: Albumin 1.4 g/dL (3.4-5.0); BUN/Creatinine Ratio 87.7; Bilirubin, Total 3.1 mg/dL (0.2-1.0); Calcium 7.8 mg/dL (8.5-10.1); Magnesium 2.7 mg/dL (1.6-2.6); Phosphorus 5.6 mg/dL (2.5-4.90); Potassium 4.8 mmol/L (3.5-5.1)
[2017-12-25] MEDS: MEGESTROL ACET 400MG/10ML ORAL SUSP PO SCH ×2 (10:00→21:02)
[2017-12-25 10:11] LABS: Band Neutrophils % (manual) 2; Lymphocytes % (manual) 1 (10.0-50.0); Monocytes % (manual) 2 (0-12)
[2017-12-25] MEDS: methylPREDNISolone SOD SUCC 40 MG/ML VL IV SCH (10:20)
[2017-12-25] MEDS: ENOXAPARIN SOD 40 MG/0.4 ML SYRINGE SC SCH (10:20)
[2017-12-25] MEDS: FUROSEMIDE 40 MG/4 ML VIAL IV SCH (10:20)
[2017-12-25] MEDS: VANCOMYCIN 1,250 MG in D5W 5% 250 ML IV SCH ×2 (10:20→17:58)
[2017-12-25 12:00] VITALS: BP 89/53
[2017-12-25 15:00] VITALS: BP 88/74
[2017-12-25] MEDS ORDERED: TPN PER PHARMACY IV NR ×6 (20:00)
[2017-12-25 22:04] VITALS: BP 94/53
[2017-12-26] MEDS: InsuLIN REG 1unit/0.01ml Soln (100units/ml) SC SCH ×2 (01:42→05:48)
[2017-12-26] MEDS: ACCU-CHEK COMFORT CURVE STRIP VI SCH ×2 (01:43→05:48)
[2017-12-26] MEDS: SODIUM CHLORIDE 0.9% 1,000 ML IV SCH (01:43)
[2017-12-26] MEDS: MEROPENEM 1gm/20ml IVPUSH 20 ML IV SCH (01:43)
[2017-12-26 05:12] VITALS: BP 84/47
[2017-12-26] MEDS: VANCOMYCIN 1,250 MG in D5W 5% 250 ML IV SCH (05:47)
[2017-12-26] MEDS: IPRATROPIUM BROM 0.5 MG/2.5ML INH SOL NEB SCH (06:20)
[2017-12-26] MEDS: ALBUTEROL SULF 2.5 MG/0.5ML(0.5%) NEB SOLN NEB SCH (06:20)
[2017-12-26] MEDS: Boost Breeze 8 Ounces PO SCH (07:20)
[2017-12-26 08:00] VITALS: BP 62/33
[2017-12-26 09:00] VITALS: BP 62/33
[2017-12-26] MEDS ORDERED: fentaNYL 25MCG/HR 25 MCG/HR PAT TD SCH (10:15)
[2017-12-26 10:27] LABS: Albumin 1.1 g/dL (3.4-5.0); BUN/Creatinine Ratio 56.4; Bilirubin, Total 2.9 mg/dL (0.2-1.0); Calcium 7.4 mg/dL (8.5-10.1); Magnesium 2.7 mg/dL (1.6-2.6); Phosphorus 7.8 mg/dL (2.5-4.90); Total Protein 5.3 g/dL (6.4-8.2)
[2017-12-26 10:30] LABS: Potassium 5.7 mmol/L (3.5-5.1)
[2017-12-26 12:48] VITALS: BP_SYST 58; BP_SYST 62; BP_DIAS 25; BP_DIAS 33
[2017-12-26 17:00] VITALS: BP 63/34
== END 2017-12-26 18:53 | disposition hospice, home (50) | DRG 853 ==
LOC: EDBD 01:52 → ER 01:57 → TELE 01:58 → DOU IN ICU 20:13 → TELE-WESTW 12-16 15:30
PROVIDERS: ADMIT Nurse Practitioner; ATTEND Internal Medicine
PROC: 0DTN0ZZ Resection of Sigmoid Colon, Open Approach (ICD-10-PCS; 2017-12-07)
PROC: 0D1M0Z4 Bypass Descending Colon to Cutaneous, Open Approach (ICD-10-PCS; 2017-12-07)
PROC: 5A1955Z Respiratory Ventilation, Greater than 96 Consecutive Hours (ICD-10-PCS; 2017-12-07)
PROC: 0BH17EZ Insertion of Endotracheal Airway into Trachea, Via Natural or Artificial Opening (ICD-10-PCS; 2017-12-07)
PROC: 0WCG0ZZ Extirpation of Matter from Peritoneal Cavity, Open Approach (ICD-10-PCS; 2017-12-07)
PROC: 30233N1 Transfusion of Nonautologous Red Blood Cells into Peripheral Vein, Percutaneous Approach (ICD-10-PCS; 2017-12-07)
PROC: 0DTP0ZZ Resection of Rectum, Open Approach (ICD-10-PCS; principal; 2017-12-07 17:18)
PROC: 02HV33Z Insertion of Infusion Device into Superior Vena Cava, Percutaneous Approach (ICD-10-PCS; 2017-12-09)
PROC: 5A09357 Assistance with Respiratory Ventilation, Less than 24 Consecutive Hours, Continuous Positive Airway Pressure (ICD-10-PCS; 2017-12-17)
PROC: 5A09357 Assistance with Respiratory Ventilation, Less than 24 Consecutive Hours, Continuous Positive Airway Pressure (ICD-10-PCS; 2017-12-19)
DX: A41.9 Sepsis, unspecified organism (principal); K63.1 Perforation of intestine (nontraumatic); J96.00 Acute respiratory failure, unspecified whether with hypoxia or hypercapnia; E43 Unspecified severe protein-calorie malnutrition; R65.21 Severe sepsis with septic shock; K65.1 Peritoneal abscess; C18.9 Malignant neoplasm of colon, unspecified; E87.2 Acidosis; J98.11 Atelectasis; K52.0 Gastroenteritis and colitis due to radiation; R64 Cachexia; K63.2 Fistula of intestine; D50.0 Iron deficiency anemia secondary to blood loss (chronic); D69.59 Other secondary thrombocytopenia; E11.9 Type 2 diabetes mellitus without complications; Z66 Do not resuscitate; Z51.5 Encounter for palliative care; I25.10 Atherosclerotic heart disease of native coronary artery without angina pectoris; K56.41 Fecal impaction; K66.8 Other specified disorders of peritoneum; Z68.24 Body mass index [BMI] 24.0-24.9, adult; Z85.048 Personal history of other malignant neoplasm of rectum, rectosigmoid junction, and anus; Z91.19 Patient's noncompliance with other medical treatment and regimen; Z92.21 Personal history of antineoplastic chemotherapy; Z92.3 Personal history of irradiation; Z71.3 Dietary counseling and surveillance
CPT/HCPCS: 36415; 36430; 36600; 71045; 74176; 74177; 80048; 80053; 80076; 80202; 82040; 82150; 82378; 82805; 82962; 83605; 83690; 83735; 84100; 84478; 84484; 85007; 85014; 85018; 85025; 85027; 85610; 85730; 86850; 86900; 86901; 86920; 87040; 87070; 87081; 87086; 87205; 93005; 93970; 94003; 94640; 94660; 96361; 96374; 96375; 96379; 97110; 97116; 97163; 97530; C9113; J0610; J0690; J1815; J2250; J2270; J2405; J2543; J2704; J3480; J3490; J7042; J7060; J7131; P9047